=== PATIENT | male | born 1950 ===

== ENCOUNTER → 2018-07-17 12:01 | Day surgery (SDC) | payer MEDICARE, BC ==
[~2018-07-17 12:01] MED LIST: Buffered Lidocaine 0.9% SYRIN* 5 ML/SYR SYRINGE INTRADERM ONE; Bupivacaine 0.5%* 50 ML VIAL ONE; Clindamycin 900 MG/D5W BAG(*) 900 MG/50 ML BAG IVPB ONE; DiMENhydriNATE IV* 50 MG/ML VIAL IV PUSH PRN; Famotidine IV* 10 MG/ML 2 ML (20 mg) IV ONE; Famotidine IV* 10 MG/ML 2 ML (20 mg) ONE; HYDROcodone/ACETAMIN 5-325 MG* 1 TAB PO PRN; Ketorolac INJ* 30 MG/ML 1 ML VIAL ONE; Lactated Ringers 1000 ML Bag* 1,000 ML IV SCH; Lidocaine 2% PF * 5 ML VIAL ONE; Midazolam* 1 MG/ML 2 ML VIAL (2 MG) ONE; Naloxone* 0.4 MG/ML 1 ML VIAL IV PRN; Ondansetron INJ* 2 MG/ML VIAL ONE; Propofol* 10 MG/ML 20 ML BTL ONE; ceFAZolin 2 GM PREMIX in ORs 0 GM/0 ML BAG IVPB ONE; fentaNYL* 50 MCG/ML 2 ML VIAL (100 MCG VIAL) IV PRN; fentaNYL* 50 MCG/ML 2 ML VIAL (100 MCG VIAL) ONE; oxyCODONE/Acetamin 5/325 MG* TAB PO PRN
[2018-07-17 20:05] VITALS: BP 96/75
--- NOTE | 2018-07-18 01:12 | OP ---
DATE OF OPERATION: 07/17/18 [facility] DATE OF : 52 SURGEON: Vipin Aquino MD OFFICE CASHIER: BIJU Aj followed by BIJU Manzanares. Vice President Client Services was needed for the entirety of the procedure to aid in positioning of the arm and retraction. ANESTHESIOLOGIST: Dr. Sparrow. ANESTHESIA: General. PRE-OP DIAGNOSIS: Left thumb subsidence and scapho-metacarpal impingement, status post left thumb carpometacarpal arthroplasty well over a year ago. POST-OP DIAGNOSES: 1. Left thumb subsidence and scapho-metacarpal impingement, status post left thumb carpometacarpal arthroplasty well over a year ago. 2. Left scaphotrapezoid degenerative joint disease. OPERATIVE PROCEDURE: Revision left thumb metacarpal arthroplasty INDICATIONS: Barry had the aforementioned subsidence and impingement that is causing him severe pain. We had talked about treatment options. We decided to proceed with a revision left thumb metacarpal arthroplasty. I told him that this time I would use the Arthrex InternalBrace device for suspension of the STR graft, did not do well last time. Additionally, I would use AlloDerm tissue for infection risk of other complications and he wants to proceed with surgery. ESTIMATED BLOOD LOSS: 2 mL. COMPLICATIONS: None. FINDINGS: See above and below. DESCRIPTION OF PROCEDURE: Barry was seen in the preoperative holding area. The correct site, side, and procedure were identified. We came back to the operating room where the arm was prepped and draped in the usual fashion and a time-out was performed. I exsanguinated the arm with an Esmarch and the tourniquet was inflated to 150 mmHg. I then reopened his prior dorsal radial thumb base incision. Dissection was carried down. The radial right artery was identified and protected. The site of the prior trapeziectomy was entered by raising full-thickness flaps off the metacarpal base down to the distal pole of the scaphoid. The tendon graft was then exposed and excised in its entirety. The metacarpal base was trimmed to remove any osteophytes that had formed. The entirety of any scar tissue that was inside the trapeziectomy was completely excised so as to visualize the trapezoid. The distal pole of the scaphoid which was devoid of any articular cartilage as well as the metacarpal base. The second metacarpal trapezoid joint was also seen. I inspected the trapezoid joint and there was full- thickness cartilage loss at the distal pole of the scaphoid. I decided to perform partial trapeziectomy. This was done with the osteotome. It came out nicely in one nice clean wafer. I excised probably 3 to 4 mm of the proximal trapezoid. At this point, I excised a little bit of metacarpal base so as to improve my visualization of the base of the second metacarpal and to prevent any impingement. After inspection of the metacarpal base, I placed my first guidewire into the base of the second metacarpal. I then overdrilled and then placed my first suture as part of the Arthrex InternalBrace device. There was suture tape attached to this. I then placed the thumb adducted against the second metacarpal with gentle traction on it and drilled my second K-wire into the dorsoradial aspect of the metacarpal base. I then overdrilled the K-wire and placed my second suture anchor providing appropriate tension on the suture tape to secure the InternalBrace. After this was placed, I can no longer cause any impaction between the distal pole of the scaphoid and the metacarpal base. With the partial trapeziectomy performed and the InternalBrace placed, the last thing to do was to place my AlloDerm tissue into position. I cut off 2 longitudinal splits and I folded the first into third and secured this with 3-0 vicryl sutures and a couple of 3-0 Ethibond sutures. This was docked and centered, positioned between the base of the trapezoid and the distal pole of the scaphoid. We took another strip of AlloDerm tissue and folded in over several times and secured the margins with Ethibond and Vicryl suture. This was then placed and centered, positioned between the base of the metacarpal and the distal pole of the scaphoid. Once the tissue was interposed, I closed the capsule with 3-0 Ethibond suture. The skin was closed with 4-0 nylon suture. Marcaine was placed around the operative area. The wounds were dressed and thumb spica splint was applied. The tourniquet was deflated. The hand pinked up immediately and he was then woken up and taken to the recovery room in stable condition. [id number]/[facility] #: [id number] MTDD
== END | disposition home or self-care (01) ==
LOC: OR 12:01
PROVIDERS: ATTEND Orthopaedic Surgery Hand Surgery
DX: M25.842 Other specified joint disorders, left hand (principal); M19.042 Primary osteoarthritis, left hand; Z79.84 Long term (current) use of oral hypoglycemic drugs; E11.40 Type 2 diabetes mellitus with diabetic neuropathy, unspecified; K21.9 Gastro-esophageal reflux disease without esophagitis; Z87.891 Personal history of nicotine dependence; I10 Essential (primary) hypertension; E03.9 Hypothyroidism, unspecified
CPT/HCPCS: C1713; J0690; J1885; J2250; J2405; J2704; J3010; Q4116